=== PATIENT | male | born 1945 | race Caucasian/White ===

== ENCOUNTER 2020-09-17 14:52 | Emergency (ER) | payer MEDICARE ==
[~2020-09-17] VITALS: Ht 170.2 cm; Wt 68.2 kg
[2020-09-17 15:00] VITALS: BP 155/82
[2020-09-17 17:22] LABS: COVID AG,FIA SOURCE NASAL SWAB
== END 2020-09-17 18:17 | disposition home or self-care (01) ==
LOC: EMS 15:13
DX: R51.9 Headache, unspecified (principal); Z20.828 Contact with and (suspected) exposure to other viral communicable diseases
CPT/HCPCS: 87426

== ENCOUNTER 2021-05-01 21:33 | Emergency (ER) | payer MEDICARE, MEDICAID ==
[~2021-05-01] VITALS: Ht 167.6 cm; Wt 68.0 kg
[2021-05-01] MEDS ORDERED: TAMS-13 PO (21:44)
[2021-05-01 22:42] LABS: APPEARANCE,URINE CLOUDY (CLEAR); BILIRUBIN,URINE NEGATIVE (NEGATIVE); GLUCOSE, URINE (UA) NEGATIVE (NEGATIVE); KETONES,URINE NEGATIVE (NEGATIVE); LEUKOCYTE ESTERASE ,URINE LARGE (NEGATIVE); NITRATE,URINE NEGATIVE (NEGATIVE); OCCULT BLOOD,URINE LARGE (NEGATIVE); PH,URINE 5.5 (5.0-8.0); PROTEIN,URINE TRACE (NEGATIVE); UROBILINOGEN,URINE 0.2 mg/dL (<=1.0)
[2021-05-01 22:52] LABS: BACTERIA,URINE Many /HPF (None Seen); WBC,URINE >100 /HPF (0-5)
[2021-05-01 22:53] LABS: SQUAMOUS EPITHELIAL CELL,UR Rare /LPF (None Seen)
[2021-05-01 23:30] VITALS: BP 119/64
[2021-05-02] MEDS ORDERED: CEPHALEXIN MONOHYDRATE 500 MG CAPSULE PO ONE
[2021-05-02] MEDS ORDERED: PHENAZOPYRIDINE HCL 100 MG TABLET PO ONE
== END 2021-05-02 00:10 | disposition home or self-care (01) ==
LOC: EMS 21:38
DX: N39.0 Urinary tract infection, site not specified (principal)
CPT/HCPCS: 81001; 87077; 87086; 87186; 99283